=== PATIENT | female | born 1945 | race Hispanic/Latino ===

== ENCOUNTER 2016-10-04 07:25 | Day surgery (SDC) | payer MEDICARE ==
[~2016-10-04 07:25] MED LIST: ANCEF/STERILE WATER 2 GM/20 ML 2 GM/20 ML SYRINGE IV NR; NACL 0.9% 1000 ML 1,000 ML IV SCH
[2016-10-04 09:04] LABS: Chloride 98.5 mmol/L (98-107); Potassium 3.6 mmol/L (3.6-5.0)
[2016-10-04 09:09] LABS: Basophils % (Auto) 0.9 % (0.0-1.8); Eosinophils % (Auto) 3.1 % (0.0-4.3); Mean Corpuscular HGB Conc 35 % (30-34); Mean Corpuscular Hemoglobin 34 pg (28-32); Mean Corpuscular Volume 97 fl (79-97); Platelet Count 251 K/mm3 (140-440); Red Blood Count 3.83 M/mm3 (3.65-5.03); Red Cell Distribution Width 12.3 % (13.2-15.2); White Blood Count 6.6 K/mm3 (4.5-11.0)
[2016-10-04 09:19] LABS: Partial Thromboplastin Time 34.9 Sec. (24.2-36.6)
[2016-10-04] MEDS ORDERED: VANCOMYCIN/NS 1 GM/250 ML 1 GM/250 ML BAG IV ONE (09:34)
[2016-10-04] MEDS ORDERED: HEPARIN/NS 5000 UNIT/500ML(CATH LAB) 1,000 ML IR ONE ×2 (09:35→11:26)
[2016-10-04] MEDS: VERSED IV ONE ×4 (09:47→12:00)
[2016-10-04] MEDS: SUBLIMAZE ONE ×4 (09:47→12:58)
[2016-10-04] MEDS: XYLOCAINE 2% INFILTRATI ONE ×2 (09:50→09:56)
[2016-10-04] MEDS: HEPARIN 10,000 UNITS/10 ML ONE ×5 (10:15→13:37)
[2016-10-04] MEDS ORDERED: SUBLIMAZE ONE (12:01)
[2016-10-04] MEDS ORDERED: HEPARIN/NS 5000 UNIT/500ML(CATH LAB) 500 ML IR ONE (12:10)
[2016-10-04] MEDS ORDERED: DILAUDID ONE (13:38)
[2016-10-04] MEDS ORDERED: NACL 0.9% 500 ML 500 ML IV SCH (14:00)
[2016-10-04] MEDS ORDERED: PROTONIX PO ONE (14:21)
[2016-10-04] MEDS ORDERED: TORADOL IV ONE (14:22)
[2016-10-04] MEDS ORDERED: NACL 0.9% 500 ML 500 ML ONE (14:32)
--- NOTE | 2016-10-04 15:15 | Operative Report ---
Operative Report Operative Report: Procedure: 1. Bilateral common, internal, and external iliac venography 2. Bilateral common femoral venography. 3. Bilateral iliac vein angioplasty. 4. Bilateral iliac vein stenting. 5. Ultrasound guided access of the left and right common femoral veins. Date of Procedure: 10/04/2016 History/Indication: This is a 70-year-old female presenting to the outpatient clinic with persistent symptoms of venous insufficiency refractory to saphenous vein ablation Physician: Santa Tucker MD Technique and Findings: The patient was placed in the supine position and prepped and draped in the usual sterile fashion. A timeout was performed. Local anesthetic was administered. Under continuous ultrasound guidance, an 18-gauge needle was used to access the right common femoral vein. A Blair wire was advanced, and a 6 Scottish vascular sheath was placed. This same series of steps was repeated for the left common femoral vein. Angiography of the IVC and both common and external iliac veins was performed. Over a Blair wire, both 6 Scottish vascular sheaths were exchanged for 10 Scottish vascular sheaths. Thereafter a [employer] intravenous ultrasound probe was advanced into the inferior vena cava via the left common femoral sheath, and intravascular ultrasound images were recorded. This was then repeated for the right side. The ultrasound catheter was removed. Pre-dilation of both common iliac arteries was performed with a 14 mm XXL balloon. Angiography was again performed. Thereafter, a 16 mm x 60 mm wall stent was deployed in both common iliac arteries. This was extended peripherally to the external iliac veins on both sides with 16 mm x 40 mm wall stents. An 18 mm x 16 mm wall stent was deployed on the left side to address an area of discontinuity between the previous 2 stents. This was then extended even further peripherally into the common femoral vein with a 14 mm x 40 mm wall stent. Post stent angioplasty was performed, followed by venography. All catheters and wires were removed, sterile dressings were placed, and the patient was transported from the procedure area in good condition. Findings: The inferior vena cava is patent and normal in caliber. There is severe narrowing of the left common iliac/IVC junction. There is additional area of significant narrowing of the distal left common iliac vein. There are no focal narrowings of the left external iliac or common femoral vein, but both veins are very diminutive in caliber. There is mild, focal narrowing of the right common iliac vein. As on the left, both the right common and external iliac vein are smoothly tapered and diminutive in caliber. After both angioplasty and stent placement, all treated veins demonstrated a normal caliber, with centrally directed egress of contrast. Overall slow flow is noted, suggestive of an underlying cardiac etiology as well. I suggested to the patient that she follow-up with her pharmacists who she has not seen in several months. Additionally, I am putting the patient on Plavix to help prevent in-stent restenosis. Specimen: None EBL: <5 cc
[2016-10-04] MEDS ORDERED: ZOFRAN ONE (16:06)
[2016-10-04] MEDS ORDERED: ZOFRAN IV ONE (16:08)
[2016-10-04 16:33] VITALS: BP 110/49
--- NOTE | 2016-10-05 07:31 | Vascular Lab Report ---
MISCELLANEOUS VESSEL IDENTIFICATION: COMMENTS ON THE SCAN: The right and left common femoral veins were identified and under real-time ultrasound guidance were cannulated. IMPRESSION: Successful ultrasound guided vein cannulation.
== END 2016-10-04 16:30 | disposition home or self-care (01) ==
LOC: OPU 07:25
PROVIDERS: ATTEND Radiology Diagnostic Radiology
DX: I87.2 Venous insufficiency (chronic) (peripheral) (principal); I87.1 Compression of vein; J45.909 Unspecified asthma, uncomplicated; I10 Essential (primary) hypertension; E03.9 Hypothyroidism, unspecified; E78.5 Hyperlipidemia, unspecified; Z88.0 Allergy status to penicillin; Z88.2 Allergy status to sulfonamides; Z88.4 Allergy status to anesthetic agent; Z87.891 Personal history of nicotine dependence; Z72.89 Other problems related to lifestyle; Z79.01 Long term (current) use of anticoagulants; Z79.899 Other long term (current) drug therapy; Z87.01 Personal history of pneumonia (recurrent); Z85.9 Personal history of malignant neoplasm, unspecified; Z90.710 Acquired absence of both cervix and uterus; Z98.890 Other specified postprocedural states; Z80.1 Family history of malignant neoplasm of trachea, bronchus and lung
CPT/HCPCS: 36415; 37238; 37239; 75822; 75825; 76937; 80048; 85025; 85610; 85730; 96374; 96375; C1725; C1753; C1769; C1876; C1894; J1170; J1644; J1885; J2250; J2405; J3010; J3370; J7030; J7040; Q9967